=== PATIENT | female | born 2005 | race Caucasian/White ===

== ENCOUNTER 2023-04-04 22:06 | Emergency (ER) | payer BC ==
[~2023-04-04] VITALS: Ht 157.5 cm; Wt 54.4 kg
[2023-04-04 22:09] VITALS: BP 134/78; PULSE 128; RESP 24; TEMP 96.5; O2SAT 100
[2023-04-04 22:26] VITALS: O2SAT 100
[2023-04-04 23:00] LABS: BASOPHILS % (AUTO) 0.1 % (0.0-2.0); EOSINOPHILS # (AUTO) 0.1 K/uL (0-0.4); EOSINOPHILS % (AUTO) 0.7 % (0.0-4.0); HEMATOCRIT 43.4 % (36-48); HEMOGLOBIN 15.1 g/dL (12.0-16.0); LYMPHOCYTES # (AUTO) 0.7 K/uL (2.5-16.5); LYMPHOCYTES % (AUTO) 4.4 % (20.5-51.1); MEAN CORPUSCULAR HEMOGLOBIN 31 pg (27-31); MEAN CORPUSCULAR HGB CONC 35 g/dL (33-37); MEAN CORPUSCULAR VOLUME 88.6 fL (80-94); MONOCYTES # (AUTO) 1.2 K/uL (0.8-1.0); MONOCYTES % (AUTO) 7.4 % (1.7-9.3); NEUTROPHILS # (AUTO) 14.6 K/uL (1.8-7.7); NEUTROPHILS % (AUTO) 87.4 % (42.2-75.2); PLATELET COUNT (AUTO) 173 K/uL (140-450); RED BLOOD CELL COUNT(AUTO) 4.89 MIL/uL (4.20-5.40); RED CELL DISTRIBUTION WIDTH 12.6 % (11.6-13.7); WHITE BLOOD COUNT (AUTO) 16.7 K/uL (4.5-11.0)
[2023-04-04] MEDS: NACL 0.9% 2,000 ML IV ONE (23:03)
[2023-04-04 23:15] LABS: ANION GAP 14.7 (8-16); CALCIUM 8.7 mg/dL (8.5-10.1); CARBON DIOXIDE 28.9 mmol/L (21-32); CREATININE 1.2 mg/dL (0.6-1.3); POTASSIUM 3.6 mmol/L (3.5-5.1); TOTAL BILIRUBIN 1.2 mg/dL (0.0-1.0); TOTAL PROTEIN, SERUM 8.7 g/dL (6.4-8.2)
[2023-04-04] MEDS: HALOPERIDOL IM 5 MG/ML VIAL IM ONE (23:21)
[2023-04-04 23:28] LABS: APPEARANCE,URINE CLEAR (CLEAR); BILIRUBIN,URINE 2+ (NEGATIVE); BLOOD, URINE NEGATIVE (NEGATIVE); COLOR,URINE YELLOW (YELLOW); LEUKOCYTE ESTERASE ,URINE NEGATIVE (NEGATIVE); NITRITE, URINE POSITIVE (NEGATIVE); PH,URINE 5.5 (5.0-9.0); PROTEIN,URINE 2+ (NEGATIVE); UGLUCOSE NEGATIVE (NEGATIVE)
[2023-04-04 23:32] LABS: ICTOTEST POSITIVE (NEGATIVE)
[2023-04-04 23:33] LABS: BACTERIA,URINE >30 (MANY) /HPF (None Seen); MUCUS,URINE 1+ /LPF (None Seen); RBC,URINE 0-5 /HPF (0-5)
[2023-04-04 23:46] LABS: AMPHETAMINE, URINE POSITIVE ng/ml (NEG <=1000); BARBITURATE, URINE NEGATIVE ng/ml (NEG <=200); BENZODIAZEPINE, URINE POSITIVE ng/mL (NEG <=200); CANNABINOID, URINE POSITIVE ng/mL (NEG <=50); COCAINE, URINE POSITIVE ng/mL (NEG <=300)
[2023-04-04 23:47] LABS: OPIATE, URINE NEGATIVE ng/mL (NEG <=2000); PHENCYCLIDINE SCREEN,URINE NEGATIVE ng/mL (NEG <=25)
[2023-04-04] MEDS ORDERED: cefTRIAXone 1,000 MG VIAL ONE (23:48)
[2023-04-05 00:30] LABS: LACTIC ACID 2.7 mmol/L (0.4-2.0)
[2023-04-05 02:12] VITALS: O2SAT 95
[2023-04-05] MEDS ORDERED: CEPH-588 PO (02:44)
[2023-04-05] MEDS ORDERED: ONDA-188 SL (02:45)
[2023-04-05 03:05] VITALS: BP 92/51; PULSE 99; RESP 19; TEMP 98.1; O2SAT 96
== END 2023-04-05 03:05 | disposition home or self-care (01) ==
LOC: MED 22:06
DX: N39.0 Urinary tract infection, site not specified (principal); E86.0 Dehydration; F19.10 Other psychoactive substance abuse, uncomplicated; Z79.899 Other long term (current) drug therapy
CPT/HCPCS: 36415; 80053; 80305; 81001; 81025; 83605; 85025; 87040; 87086; 93005; 96361; 96365; 96372; 99284; J0696; J1630; J7030